=== PATIENT | male | born 1980 | race Caucasian/White ===

== ENCOUNTER 2016-06-07 07:16 | Day surgery (SDC) | payer OTHER ==
[~2016-06-07] VITALS: Ht 172.7 cm; Wt 101.8 kg
[2016-06-07] MEDS ORDERED: NATURE'S BL400 IU/ML PO (07:38)
[2016-06-07] MEDS ORDERED: ASPIRIN 81M81 MG/TA2 PO (07:38)
[2016-06-07 07:39] VITALS: BP 105/75; PULSE 75; TEMP 97.7
[2016-06-07 08:02] LABS: HEMATOCRIT 37.2 % (42.0-52.0); HEMOGLOBIN 13.4 g/dl (13.5-18.0); MEAN CELL VOLUME 80 fl (80.0-100.0); MEAN CORPUSCULAR HEMOGLOBIN 29 pg (27.0-31.0); MEAN CORPUSCULAR HGB CONC 36 g/dl (33.0-37.0); MEAN PLATELET VOLUME 11.4 fl (7.4-10.4); PLATELET COUNT 133 K/mm3 (130-400); RED BLOOD COUNT 4.65 M/mm3 (4.20-5.60); REDCELL DISTRIBUTION WIDTH-CV 12.9 % (11.5-14.5); WHITE BLOOD COUNT 5.4 K/mm3 (4.8-10.8)
[2016-06-07 08:14] LABS: PROTHROMBIN TIME 11.6 SECONDS (9.7-12.8)
[2016-06-07 08:20] LABS: CALCIUM 9.5 mg/dL (8.4-10.2); CREATININE, serum 1.09 mg/dL (0.66-1.25); POTASSIUM 3.9 mmol/L (3.4-5.0)
[2016-06-07] MEDS ORDERED: MULTAQ400 MG PO (09:49)
== END 2016-06-07 10:15 | disposition home or self-care (01) ==
LOC: COL.CAR 07:16
PROVIDERS: Internal Medicine Cardiovascular Disease
DX: I48.1 Persistent atrial fibrillation (principal); R42 Dizziness and giddiness; R00.0 Tachycardia, unspecified
CPT/HCPCS: J7030

== ENCOUNTER 2016-12-07 11:33 | Day surgery (SDC) | payer OTHER ==
[~2016-12-07 11:33] MED LIST: ASPIRIN 81M81 MG/TA2 PO; MULTAQ400 MG PO; NATURE'S BL400 IU/ML PO
[2016-12-07] MEDS ORDERED: TAMBOCOR 1100 MG/TAB PO (13:10)
[2016-12-07] MEDS ORDERED: XARELTO20 MG PO (13:10)
[2016-12-07 13:28] VITALS: BP 103/63; PULSE 76; TEMP 98.3
== END 2016-12-07 14:00 | disposition home or self-care (01) ==
LOC: COL.CAR 11:33
DX: I48.1 Persistent atrial fibrillation (principal); Z53.8 Procedure and treatment not carried out for other reasons; E66.9 Obesity, unspecified; Z79.01 Long term (current) use of anticoagulants

== ENCOUNTER 2017-03-21 07:37 | Outpatient (CLI) | payer OTHER ==
[~2017-03-21] VITALS: Ht 172.7 cm; Wt 99.5 kg
[~2017-03-21 07:37] MED LIST changes: +XARELTO20 MG PO
[2017-03-21] MEDS ORDERED: CARDIZEM 60MG T60 MG PO (08:04)
[2017-03-21] MEDS ORDERED: ULTRAM 50MG TAB50 MG PO (08:05)
[2017-03-21 08:06] VITALS: BP 112/81; PULSE 71; TEMP 97.4
[2017-03-21] MEDS ORDERED: TAMBOCOR 1100 MG/TAB PO (08:25)
[2017-03-21] MEDS ORDERED: CEPHALEXIN500 M1 PO (09:33)
== END 2017-03-21 10:29 | disposition home or self-care (01) ==
LOC: COL.CAR 07:37
DX: I48.0 Paroxysmal atrial fibrillation (principal); Z82.49 Family history of ischemic heart disease and other diseases of the circulatory system; E78.5 Hyperlipidemia, unspecified; E66.9 Obesity, unspecified; Z68.33 Body mass index [BMI] 33.0-33.9, adult; Z79.01 Long term (current) use of anticoagulants; R40.0 Somnolence; R06.83 Snoring; R07.89 Other chest pain